=== PATIENT | female | born 1990 | race Two or more races ===

== ENCOUNTER 2020-07-07 21:20 | Emergency (ER) | payer SELFPAY ==
[~2020-07-07] VITALS: Ht 165.1 cm; Wt 86.3 kg
[~2020-07-07 21:20] MED LIST: HYDR-3164 PO; NAPR-683 PO
[2020-07-07] MEDS ORDERED: IV NORMAL SALINE 1000ML BAG 1,000 ML IV ONE (23:00)
[2020-07-07] MEDS ORDERED: KETOROLAC 15 MG/ML VIAL. IVP ONE (23:00)
[2020-07-07] MEDS ORDERED: diphenhydrAMINE 50 MG/ML VIAL IVP ONE (23:00)
[2020-07-07] MEDS ORDERED: methylPREDNISolone SOD SUCC PF 125 MG/2 ML VIAL. IV ONE (23:00)
--- NOTE | 2020-07-07 23:03 | RAD ---
EXAM: CT Head without IV contrast CLINICAL HISTORY: HEADACHE X 2 WEEKS COMPARISON: None. TECHNIQUE: Routine CT of the head without contrast. PQRS compliance statement - One or more of the following individualized dose reduction techniques were utilized for this study: 1. Automated exposure control 2. Adjustment of the mA and/or kV according to patient size 3. Use of iterative reconstruction technique FINDINGS: There is no evidence of hemorrhage, mass or extra-axial fluid collection. Garrison-white differentiation is maintained with no evidence of edema. There is no mass effect or shift of the intracranial structures. The ventricles, basilar cisterns and cortical sulci are normal in size and configuration for the patients stated age. The cerebellum and brainstem are unremarkable. The calvarium demonstrates no evidence of fracture or focal lesion. There is normal aeration of the visualized paranasal sinuses and mastoid air cells. The visualized portions of the orbits are normal. IMPRESSION: No evidence for acute intracranial process. Electronically signed by: Jason Cabral MD (07/07/2020 11:00 PM) CRIST[place]
--- NOTE | 2020-07-07 23:06 | PHYS DOC ---
Past Medical History Past Medical History: No Pertinent History (SONALI TORRES APRN) Past Surgical History: No Surgical History (SONALI TORRES APRN) Smoking Status: Never Smoker Alcohol Use: None (SONALI TORRES APRN) General Adult EDM: Chief Complaint: HEADACHE HPI: HPI: Patient is a 30 year old female, accompanied by her significant other, who presents to the emergency department with complaints of a headache for the last 5 days. Patient reports that 2 days ago she was seen at a clinic and she was prescribed Imitrex. She states she has tried taking the medication for her headache but denies any relief of the pain. She states that the pain is located in the back of her head. She denies any vomiting, vision changes, numbness, tingling, weakness, chest pain, shortness of breath, fever, ear pain, sore throat, abdominal pain, or vomiting. She states that the pain is so severe at times it makes her nauseated and dizzy. She currently denies any dizziness or nausea. The patient currently rates her pain a 9 out of 10 on the pain scale, she denies any alleviating or exacerbating factors she denies any radiation of the pain. The [employer] freight associate line was used to speak with the patient as she is [place]ian speaking only. (SONALI TORRES APRN) Review of Systems: Review of Systems: Constitutional: Denies fever or chills. [] Eyes: Denies change in visual acuity. [] HENT: Denies nasal congestion or sore throat.; See HPI [] Respiratory: Denies cough or shortness of breath. [] Cardiovascular: Denies chest pain GI: Denies abdominal pain, vomiting, or diarrhea; see HPI. [] Musculoskeletal: Denies back pain or joint pain. [] Integument: Denies rash. [] Neurologic: Denies focal weakness or sensory changes; see HPI Psychiatric: Denies depression or anxiety. [] (SONALI TORRES APRN) Heart Score: Risk Factors: Risk Factors: DM, Current or recent (<one month) smoker, HTN, HLP, family history of CAD, obesity. Risk Scores: Score 0 - 3: 2.5% MACE over next 6 weeks - Discharge Home Score 4 - 6: 20.3% MACE over next 6 weeks - Admit for Clinical Observation Score 7 - 10: 72.7% MACE over next 6 weeks - Early Invasive Strategies (SONALI TORRES APRN) Current Medications: Current Medications Medications (Trade) Dose Ordered Sig/Celeste Start Time Stop Time Status Last Admin Dose Admin Diphenhydramine HCl (Benadryl) 25 mg 1X ONCE 07/07/20 23:00 07/07/20 23:01 DC 07/07/20 22:58 25 MG Ketorolac Tromethamine (Toradol 15mg Vial) 15 mg 1X ONCE 07/07/20 23:00 07/07/20 23:01 DC 07/07/20 22:58 15 MG Methylprednisolone Sodium Succinate (SOLU-Medrol 125MG VIAL) 125 mg 1X ONCE 07/07/20 23:00 07/07/20 23:01 DC 07/07/20 22:59 125 MG Sodium Chloride 1,000 ml @ 1,000 mls/hr 1X ONCE 07/07/20 23:00 07/07/20 23:59 07/07/20 22:58 1,000 MLS/HR (SONALI TORRES APRN) Allergies: Allergies: Allergies Coded Allergies Type Severity Reaction Last Updated Verified No Known Drug Allergies 12/18/15 No (SONALI TORRES APRN) Physical Exam: PE: Constitutional: Well developed, well nourished, no acute distress, non-toxic appearance. [] HENT: Normocephalic, atraumatic, bilateral external ears normal, oropharynx moist, no oral exudates, nose normal. [] Eyes: PERRLA, EOMI, conjunctiva normal, no discharge. [] Neck: Normal range of motion, no stridor. [] Cardiovascular:Heart rate regular rhythm Lungs & Thorax: Bilateral breath sounds clear to auscultation, Respirations even and unlabored, no retractions, no respiratory distress [] Skin: Warm, dry, no erythema, no rash. [] Extremities: No cyanosis, ROM intact, no edema. [] Neurologic: Alert and oriented X 3, normal motor function, normal sensory function, no focal deficits noted. [] Psychologic: Affect normal, judgement normal, mood normal. [] (SONALI TORRES APRN) Current Patient Data: Vital Signs: Vital Signs Date Time Temp Pulse Resp B/P (MAP) Pulse Ox O2 Delivery O2 Flow Rate FiO2 07/07/20 21:54 98.3 91 20 134/94 (107) 100 Room Air 98.3 (SONALI TORRES APRN) EKG: EKG: [] (SONALI TORRES APRN) Radiology/Procedures: Radiology/Procedures: PROCEDURE: CT HEAD WO CONTRAST EXAM: CT Head without IV contrast CLINICAL HISTORY: HEADACHE X 2 WEEKS COMPARISON: None. TECHNIQUE: Routine CT of the head without contrast. PQRS compliance statement - One or more of the following individualized dose reduction techniques were utilized for this study: 1. Automated exposure control 2. Adjustment of the mA and/or kV according to patient size 3. Use of iterative reconstruction technique FINDINGS: There is no evidence of hemorrhage, mass or extra-axial fluid collection. Garrison-white differentiation is maintained with no evidence of edema. There is no mass effect or shift of the intracranial structures. The ventricles, basilar cisterns and cortical sulci are normal in size and configuration for the patients stated age. The cerebellum and brainstem are unremarkable. The calvarium demonstrates no evidence of fracture or focal lesion. There is normal aeration of the visualized paranasal sinuses and mastoid air cells. The visualized portions of the orbits are normal. IMPRESSION: No evidence for acute intracranial process.[] (SONALI TORRES APRN) Course & Med Decision Making: Course & Med Decision Making Pertinent Labs and Imaging studies reviewed. (See chart for details) 30-year-old female presents to the emergency department with complaints of a headache for the last 5 days that does not improve with use of Imitrex. Work-up included a CT of the patient's head which revealed no acute findings. The patient was treated with IV fluids, Toradol, Benadryl, and Solu-Medrol. She reported relief of the pain after these medications the pain went down to a 4 out of 10. Prescription written for Flexeril 10 mg tablets every 8 hours as needed for headache. Advised the patient that her headaches are likely a tension or stress related headache. Recommended follow-up with her primary care doctor for further evaluation and treatment. Return to the ER if symptoms worsen. Patient verbalized an understanding of home care, medications, follow-up, and return to ED instructions and was in agreement with the plan of care. [] (SONALI TORRES APRN) Dragon Disclaimer: Dragon Disclaimer: This electronic medical record was generated, in whole or in part, using a voice recognition dictation system. (SONALI TORRES APRN) Departure Departure Impression: Primary Impression: Tension type headache Qualified Codes: G44.209 - Tension-type headache, unspecified, not intractable Disposition: HOME, SELF-CARE Condition: STABLE Referrals: NO PCP (PCP) Patient Instructions: Tension Headache, [id number] Additional Instructions: Fill the prescription and use it as directed. Home to rest. Follow-up with your primary care doctor in 1 to 2 days, return to the ER if symptoms worsen. Scripts Cyclobenzaprine Hcl (CYCLOBENZAPRINE HCL) 10 Mg Tablet 1 TAB PO TID PRN for PAIN for 5 Days, #15 TAB 0 Refills Prov: SONALI TORRES APRN 07/08/20 Justicifation of Admission Dx: Justifications for Admission: Justification of Admission Dx: N/A (SONALI TORRES APRN) Attending Signature Attending Signature I have reviewed the PA/[employer] TENDER [employer]'s note and plan of care. I was available for consultation as needed during the patient's visit in the emergency department. I agree with the clinical impression, plan, and disposition. (SERAFIN ARGUETA DO) SONALI TORRES APRN Jul 07, 2020 23:05 SERAFIN ARGUETA DO Jul 08, 2020 01:51
[2020-07-08] VITALS: BP 125/75
[2020-07-08] MEDS ORDERED: CYCL10TA2 PO (00:02)
== END 2020-07-08 00:43 | disposition home or self-care (01) ==
LOC: ER 21:20
DX: G44.209 Tension-type headache, unspecified, not intractable (principal); R42 Dizziness and giddiness
CPT/HCPCS: 70450; 96361; 96374; 96375; 99284; J1200; J1885; J2930; J7030